=== PATIENT | male | born 1975 | race Caucasian/White ===

== ENCOUNTER 2024-05-24 14:53 | Emergency (ER) | payer OTHER ==
[~2024-05-24] VITALS: Ht 180.3 cm; Wt 104.5 kg
[2024-05-24 17:16] VITALS: BP 139/82; PULSE 86; RESP 16; TEMP 98.8; O2SAT 95
[2024-05-28 13:47] LABS: Hepatitis B Surface Antibody Positive (Negative)
[2024-05-28 13:59] LABS: Hepatitis B Surface Antigen Negative (Negative)
== END 2024-05-24 18:01 | disposition home or self-care (01) ==
LOC: ER 14:53
DX: Z22.322 Carrier or suspected carrier of Methicillin resistant Staphylococcus aureus (principal)
CPT/HCPCS: 36415; 86703; 86706; 86803; 87081; 87340